=== PATIENT | male | born 1975 | race Two or more races ===

== ENCOUNTER 2016-09-03 11:54 | Emergency (ER) | payer BC, OTHER ==
[2016-09-03 12:00] VITALS: BP 130/74; PULSE 74; TEMP 97.9; BMI 45.1
--- NOTE | 2016-09-03 12:52 | PDOC ---
History of Present Illness - General Chief Complaint: Respiratory Stated Complaint: COUGH Time Seen by Provider: 09/03/16 12:40 History Source: Patient Exam Limitations: No Limitations - History of Present Illness Initial Comments: 09/03/16 12:44 40 yr male with cough for one to two weeks worse in the morning. Pt denies smoking no fever or chills. Pt also with post nasal drip and reflux . no surgical history. Timing/Duration: reports: week (1-2 weeks ) Severity: reports: moderate Past History - Past Medical History Allergies/Adverse Reactions: Allergies Allergy/AdvReac Type Severity Reaction Status Date / Time No Known Allergies Allergy Verified 09/03/16 12:00 Home Medications: Ambulatory Orders Nystatin Powder [Nystop Powder -] 1 gm TP BID #60 g 02/05/15 Fluticasone Prop 0.05% Nasal [Flonase -] 1 - 2 spray NS BID #1 spray.pump Valacyclovir HCl [Valtrex -] 500 mg PO BID #6 tablet 09/03/16 Other medical history: denies - Family Disease History Comment:: 09/03/16 12:45 none - Immunization History Immunization Up to Date: Yes - Psycho/Social/Smoking Cessation Hx Suicidal Ideation: No Smoking History: Never smoked Information on smoking cessation initiated: No Hx Alcohol Use: No Drug/Substance Use Hx: No Substance Use Type: None Respiratory Specific PMHX - Complaint Specific PMHX Angina: No Bronchitis: No Pneumonia: No Pulmonary Embolus: No TB (Tuberculosis): No Review of Systems - Review of Systems Able to Perform ROS?: Yes Is the patient limited Citizen [place] proficient: No Constitutional: Yes: Symptoms Reported HEENTM: Yes: Symptoms Reported Respiratory: Yes: Symptoms reported Cardiac (ROS): No: Symptoms Reported ABD/GI: No: Symptoms Reported : No: Symptoms Reported Musculoskeletal: No: Symptoms Reported Integumentary: No: Symptoms Reported Neurological: No: Symptoms reported *Physical Exam - Vital Signs Last Vital Signs Temp Pulse Resp BP Pulse Ox 97.9 F 74 18 130/74 99 09/03/16 11:58 09/03/16 11:58 09/03/16 11:58 09/03/16 11:58 09/03/16 11:58 - Physical Exam General Appearance: Yes: Nourished, Appropriately Dressed, Obese HEENT: positive: EOMI, RACHEL, TMs Normal, Pharynx Normal, Other (post nasal drip ) Neck: positive: Supple Respiratory/Chest: positive: Lungs Clear, Normal Breath Sounds Cardiovascular: positive: Regular Rhythm, Regular Rate Gastrointestinal/Abdominal: positive: Normal Bowel Sounds, Soft Musculoskeletal: positive: Normal Inspection Extremity: positive: Normal Capillary Refill, Normal Inspection, Normal Range of Motion Integumentary: positive: Normal Color, Dry, Warm Neurologic: positive: mechanical striper II-XII NML intact, Fully Oriented, Alert, Normal Mood/ Affect, Normal Response, Motor Strength 08/24 Medical Decision Making - Medical Decision Making 09/03/16 12:46 cc: cough productive phlegm in the morning , post nasal drip will give flonase refer to ENT allergy and GI for reflux discussed diet modification foods that can trigger reflux, pt agrees with plan and understands the need for dietary changes 09/03/16 12:47 pt also asking for refill on valtrex for genital herpes *DC/Admit/Observation/Transfer Diagnosis at time of Disposition: Post-nasal drip - Discharge Dispostion Disposition: HOME Condition at time of disposition: Good - Prescriptions Prescriptions: Fluticasone Prop 0.05% Nasal [Flonase -] 1 - 2 spray NS BID #1 spray.pump Valacyclovir HCl [Valtrex -] 500 mg PO BID #6 tablet - Referrals Referrals: Dayo Jara MD [Staff Physician] - - Patient Instructions Additional Instructions: drink pleanty of water to stay hydrated use the Flonase as directed avoid spicy foods that may trigger the reflux followed with the ENT allergy doctors for follow up
== END 2016-09-03 13:08 | disposition home or self-care (01) ==
LOC: JERFT 11:54
DX: R09.82 Postnasal drip (principal); K21.9 Gastro-esophageal reflux disease without esophagitis
CPT/HCPCS: 99281-25